=== PATIENT | male | born 1945 | race Two or more races ===

== ENCOUNTER 2016-10-11 10:52 | Emergency (ER) | payer MEDICARE, MEDICAID ==
[~2016-10-11] VITALS: Ht 175.3 cm; Wt 77.1 kg
[~2016-10-11 10:52] MED LIST: ALEVE220 M2 PO; DEXILANT60 MG ORAL; DITROPAN10 MG ORAL; DOXAZOSIN MESYLA4 MG ORAL; HARVONI 90-4001 EACH PO; HYDROCODON-ACE1 EA13 ORAL; MULTIVITAMINS1 EAC2 ORAL; NASAL SPRAY; NASAL SPRAY30 M1 NS; NASAL SPRAY30 M4 NS; NORCO 5-325 TA1 EAC1 ORAL; OXYCODONE HCL10 MG ORAL; PROSCAR5 MG ORAL; RIBAVIRIN200 M1 ORAL; SAW PALMETTO500 MG PO; SOVALDI400 MG PO; VITAMIN B-12500 MCG ORAL; VITAMIN C500 M1 ORAL
[2016-10-11 11:23] VITALS: BP 168/85
--- NOTE | 2016-10-11 11:29 | Emergency Room Report ---
History of Present Illness General Chief Complaint: Pain Source: Patient Present Illness HPI Patient presents with complaints of right foot swelling The swelling is localized to the dorsal part of the right foot patient had a trip and fall recently in the last 2 days Did not think much of it at that time Denies any ankle pain Denies any other pain to the foot out of the swelling is noticeable Denies any calf pain or swelling denies any knee pain Denies any chest pain or shortness of breath Allergies: Coded Allergies: No Known Allergies (Unverified , 01/08/12) Patient History Past Medical History: see triage record Pertinent Family History: none Reviewed Nursing Documentation: PMH: Agreed, PSxH: Agreed Nursing Documentation-PMH Past Medical History: No History, Except For Hx Cardiac Problems: No Hx Cancer: No Hx Gastrointestinal Problems: Yes - Hep C. Hx Neurological Problems: No Review of Systems All Other Systems: negative except mentioned in HPI Physical Exam Vital Signs Date Time Temp Pulse Resp B/P Pulse Ox O2 Delivery O2 Flow Rate FiO2 10/11/16 10:58 97.3 66 19 168/85 100 Room Air Sp02 EP Interpretation: reviewed, normal General Appearance: well appearing, no apparent distress Head: normocephalic, atraumatic Eyes: bilateral eye EOMI, bilateral eye PERRL ENT: normal pharynx, no angioedema Neck: supple Respiratory: lungs clear Cardiovascular #1: regular rate, rhythm Gastrointestinal: non tender, soft Musculoskeletal: swelling - There is swelling noted which is fairly well localized the dorsal part of the foot, however still warm to touch and good palpable pulses Neurologic: alert, oriented x3, responsive Skin: other - as above Lymphatic: no adenopathy Medical Decision Making Diagnostic Impression: Primary Impression: Foot swelling ER Course Multiple differentials are considered Given the patient's questionable trauma x-ray imaging was obtained No obvious acute pathology is seen I do not suspect any obvious vascular emergencies patient has palpable pulses Swelling appears to be fairly well localized At this time of initial conservative outpatient trial Other X-Ray Diagnostic Results Other X-Ray Diagnostic Results : EP Interpretation: Yes Findings: no fractures, no dislocation, no soft tissue swelling Number of Views: 3 - left foot Last Vital Signs Date Time Temp Pulse Resp B/P Pulse Ox O2 Delivery O2 Flow Rate FiO2 10/11/16 11:23 97.3 19 168/85 100 Room Air 10/11/16 10:58 66 Status: improved Disposition: HOME, SELF-CARE Condition: Stable Additional Instructions: Patient is provided with the discharge instructions notified to follow up with primary doctor in the next 2-3 days otherwise return to the er with any worsening symptoms. Please note that this report is being documented using [employer] technology. This can lead to erroneous entry secondary to incorrect interpretation by the dictating instrument. DESIREE LANDRY D.O. October 11, 2016 11:29
--- NOTE | 2016-10-11 12:35 | Diagnostic Imaging Report ---
Indication: Pain Comparison: None Findings: 3 views of the right foot were obtained. Bones are osteopenic. There is narrowing of several interphalangeal joints, first MTP joint and intertarsal joints with mild marginal spur formation. No fracture or malalignment seen. Vascular calcifications are present. Impression: No plain film evidence for osteomyelitis or acute injury.
== END 2016-10-11 12:43 | disposition home or self-care (01) ==
LOC: EMR 11:35
DX: M79.89 Other specified soft tissue disorders (principal); B19.20 Unspecified viral hepatitis C without hepatic coma
CPT/HCPCS: 99283